=== PATIENT | male | born 1935 | race Caucasian/White ===

== ENCOUNTER 2017-12-17 18:26 | Emergency (ER) | payer MEDICARE, BC ==
[~2017-12-17] VITALS: Ht 182.9 cm; Wt 86.2 kg
[~2017-12-17 18:26] MED LIST: ASCO-22 PO; ATOR10TA70 PO; CHOL2000 PO; INSU100V9 SQ; LACTC PO; LEVO500C3 PO; LOSA25TA96 PO; MAGN400C PO; OMEG10006 PO; RIBO1POW3 PO; S-AD200T5 PO; ST.300CA PO; THIO300C PO; UBID100C16 PO
[2017-12-17 19:25] LABS: BASOPHILS % (AUTO) 0.4 % (0-1); EOSINOPHILS # (AUTO) 0.2 X10'3 (0-0.9); EOSINOPHILS % (AUTO) 3.5 % (0-6); HEMATOCRIT 32.5 % (42.0-52.0); HEMOGLOBIN 11.1 g/dl (14.0-17.9); LYMPHOCYTES # (AUTO) 1.2 X10'3 (1.1-4.8); LYMPHOCYTES % (AUTO) 21.6 % (21-51); MEAN CORPUSCULAR HEMOGLOBIN 29.8 PG (27.0-31.0); MEAN CORPUSCULAR VOLUME 87.5 FL (78-98); MEAN PLATELET VOLUME 7.5 FL (7.4-10.4); MONOCYTES # (AUTO) 0.7 X10'3 (0-0.9); MONOCYTES % (AUTO) 12.6 % (2-12); NEUTROPHILS # (AUTO) 3.3 X10'3 (1.8-7.7); NEUTROPHILS % (AUTO) 61.9 % (42-75); PLATELET COUNT 182 X10'3 (140-440); RED BLOOD COUNT 3.71 X10'6 (4.70-6.10); RED CELL DISTRIBUTION WIDTH 13.2 % (11.5-14.5); WHITE BLOOD COUNT 5.4 X10'3 (4.5-11.0)
[2017-12-17 19:38] LABS: PARTIAL THROMBOPLASTIN TIME 26 SECONDS (22-32); PROTHROMBIN TIME 10.7 SECONDS (9.0-12.0)
[2017-12-17 19:44] LABS: ALANINE AMINOTRANSFERASE 24 U/L (12-78); ALBUMIN 3.3 G/DL (3.4-5.0); ALBUMIN/GLOBULIN RATIO 0.9 (1.1-1.5); ALKALINE PHOSPHATASE 68 IU/L (46-116); ANION GAP 7 (8-16); ASPARTATE AMINO TRANSFERASE 13 U/L (10-37); BILIRUBIN,TOTAL 0.2 MG/DL (0.1-1.0); BLOOD UREA NITROGEN 47 MG/DL (7-18); BUN/CREATININE RATIO 20.4 (5.4-32.0); CALCIUM 9.4 MG/DL (8.5-10.1); CHLORIDE 110 MMOL/L (99-107); CREATINE KINASE 123 U/L (39-308); GLUCOSE 184 MG/DL (70-104); POTASSIUM 4.6 MMOL/L (3.5-5.1); SODIUM 141 MMOL/L (135-145); TOTAL PROTEIN 6.8 G/DL (6.4-8.2); TROPONIN I < 0.04 NG/ML (0.0-0.05); eGFR 27 ML/MIN
[2017-12-17] MEDS ORDERED: HYDROcodone/acetaminophen 5mg/325mg tablet PO ONE (22:30)
[2017-12-17] MEDS ORDERED: HYDR-569 PO (23:27)
[2017-12-17] MEDS ORDERED: TRAM50TA2 PO (23:27)
[2017-12-17 23:48] VITALS: BP 149/89
[2017-12-18] MEDS ORDERED: BACK1EAC10 (01:00)
== END 2017-12-18 01:07 | disposition home or self-care (01) ==
LOC: ER 18:27
DX: S22.058A Other fracture of T5-T6 vertebra, initial encounter for closed fracture (principal); S22.068A Other fracture of T7-T8 thoracic vertebra, initial encounter for closed fracture; R07.89 Other chest pain; I10 Essential (primary) hypertension; I25.10 Atherosclerotic heart disease of native coronary artery without angina pectoris; J44.9 Chronic obstructive pulmonary disease, unspecified; E11.9 Type 2 diabetes mellitus without complications; Z86.73 Personal history of transient ischemic attack (TIA), and cerebral infarction without residual deficits; Z98.890 Other specified postprocedural states; Z79.4 Long term (current) use of insulin; Z79.899 Other long term (current) drug therapy; Z88.2 Allergy status to sulfonamides; Z88.5 Allergy status to narcotic agent; Z88.8 Allergy status to other drugs, medicaments and biological substances; W18.39XA Other fall on same level, initial encounter; Y93.89 Activity, other specified; Y92.89 Other specified places as the place of occurrence of the external cause; Y99.8 Other external cause status
CPT/HCPCS: 36415; 71045; 72128; 80053; 82550; 84484; 85025; 85610; 85730; 93005; 99285

== ENCOUNTER 2018-10-13 10:55 | Emergency (ER) | payer MEDICARE, BC ==
[~2018-10-13] VITALS: Ht 180.3 cm; Wt 200.0 kg
[~2018-10-13 10:55] MED LIST changes: +BACK1EAC10; +HYDR-4383 PO
[2018-10-13] MEDS ORDERED: normal saline 1000ML IV soln IVB ONE (11:35)
[2018-10-13 11:39] LABS: BASOPHILS % (AUTO) 0.8 % (0-1); EOSINOPHILS # (AUTO) 0.2 X10'3 (0-0.9); EOSINOPHILS % (AUTO) 2.8 % (0-6); HEMATOCRIT 36.7 % (42.0-52.0); HEMOGLOBIN 12.1 g/dl (14.0-17.9); LYMPHOCYTES # (AUTO) 1.4 X10'3 (1.1-4.8); LYMPHOCYTES % (AUTO) 22.4 % (21-51); MEAN CORPUSCULAR VOLUME 87.9 FL (78-98); MEAN PLATELET VOLUME 8.1 FL (7.4-10.4); MONOCYTES # (AUTO) 0.5 X10'3 (0-0.9); MONOCYTES % (AUTO) 8.3 % (2-12); NEUTROPHILS % (AUTO) 65.7 % (42-75); PLATELET COUNT 211 X10'3 (140-440); RED BLOOD COUNT 4.18 X10'6 (4.70-6.10); RED CELL DISTRIBUTION WIDTH 14.2 % (11.5-14.5); WHITE BLOOD COUNT 6.1 X10'3 (4.5-11.0)
[2018-10-13 11:52] LABS: INR 1.1 INR; PARTIAL THROMBOPLASTIN TIME 27 SECONDS (22-32)
[2018-10-13 11:54] LABS: ALANINE AMINOTRANSFERASE 19 U/L (12-78); ALBUMIN 3.6 G/DL (3.4-5.0); ALKALINE PHOSPHATASE 82 IU/L (46-116); ANION GAP 11 (8-16); ASPARTATE AMINO TRANSFERASE 15 U/L (10-37); BILIRUBIN,TOTAL 0.3 MG/DL (0.1-1.0); BLOOD UREA NITROGEN 33 MG/DL (7-18); BUN/CREATININE RATIO 12.7 (5.4-32.0); CALCIUM 9.5 MG/DL (8.5-10.1); CHLORIDE 106 MMOL/L (99-107); CREATININE 2.59 MG/DL (0.60-1.10); GLUCOSE 151 MG/DL (70-104); POTASSIUM 3.8 MMOL/L (3.5-5.1); SODIUM 141 MMOL/L (135-145); TOTAL CARBON DIOXIDE 23.8 MMOL/L (24-32); TOTAL PROTEIN 7.3 G/DL (6.4-8.2); eGFR 24 ML/MIN
[2018-10-13 12:43] VITALS: BP 132/92
== END 2018-10-13 12:44 | disposition home or self-care (01) ==
LOC: ER 10:55
DX: R55 Syncope and collapse (principal); N18.9 Chronic kidney disease, unspecified; E11.42 Type 2 diabetes mellitus with diabetic polyneuropathy; E11.22 Type 2 diabetes mellitus with diabetic chronic kidney disease; I25.10 Atherosclerotic heart disease of native coronary artery without angina pectoris; I10 Essential (primary) hypertension; J44.9 Chronic obstructive pulmonary disease, unspecified; Z86.14 Personal history of Methicillin resistant Staphylococcus aureus infection; Z86.73 Personal history of transient ischemic attack (TIA), and cerebral infarction without residual deficits; Z98.61 Coronary angioplasty status; Z98.890 Other specified postprocedural states; Z88.2 Allergy status to sulfonamides; Z88.5 Allergy status to narcotic agent; Z88.8 Allergy status to other drugs, medicaments and biological substances; Z79.4 Long term (current) use of insulin; Z79.899 Other long term (current) drug therapy
CPT/HCPCS: 36415; 71045; 80053; 82948; 84484; 85025; 85610; 85730; 93005; 96360; 99284; J7030

== ENCOUNTER 2019-01-30 18:10 | Inpatient (IN) | payer MEDICARE, BC | END 2019-02-10 13:28 | disposition home or self-care (01) | LOC: ORTHO 4S 02-07 10:15 → ER 18:10 → ED HOLD 01-31 02:17 → ORTHO 4S 01-31 07:14 | DX: I12.9 Hypertensive chronic kidney disease with stage 1 through stage 4 chronic kidney disease, or unspecified chronic kidney disease (principal); G93.41 Metabolic encephalopathy; J18.8 Other pneumonia, unspecified organism; N17.9 Acute kidney failure, unspecified; N18.3 Chronic kidney disease, stage 3 (moderate) ==

== ENCOUNTER 2019-04-03 11:33 | Outpatient (CLI) | payer MEDICARE, BC ==
[~2019-04-03 11:33] MED LIST changes: +CLOP75TA35 PO; -LOSA25TA96 PO; -MAGN400C PO; +METO25TA6 PO
== END 2019-04-03 23:59 | disposition home or self-care (01) ==
LOC: RAD 11:33
DX: R05 Cough (principal)
CPT/HCPCS: 71046

== ENCOUNTER 2019-11-05 07:18 | Inpatient (IN) | payer MEDICARE, BC ==
[~2019-11-05] VITALS: Ht 182.9 cm; Wt 93.6 kg
[2019-11-05] MEDS ORDERED: normal saline 1000ml 1,000 ML IV ONE (08:00)
[2019-11-05 08:03] LABS: BASOPHILS % (AUTO) 0.1 % (0-1); EOSINOPHILS % (AUTO) 0.4 % (0-6); HEMATOCRIT 36.9 % (42.0-52.0); HEMOGLOBIN 12.3 g/dl (14.0-17.9); LYMPHOCYTES # (AUTO) 0.7 X10'3 (1.1-4.8); LYMPHOCYTES % (AUTO) 8.9 % (21-51); MEAN CORPUSCULAR HEMOGLOBIN 29.5 PG (27.0-31.0); MEAN CORPUSCULAR HGB CONC 33.5 g/dL (33.0-36.5); MEAN PLATELET VOLUME 8.6 FL (7.4-10.4); MONOCYTES # (AUTO) 0.6 X10'3 (0-0.9); MONOCYTES % (AUTO) 7.3 % (2-12); NEUTROPHILS # (AUTO) 6.8 X10'3 (1.8-7.7); NEUTROPHILS % (AUTO) 83.3 % (42-75); PLATELET COUNT 191 X10'3 (140-440); RED BLOOD COUNT 4.19 X10'6 (4.70-6.10); RED CELL DISTRIBUTION WIDTH 13.6 % (11.5-14.5); WHITE BLOOD COUNT 8.2 X10'3 (4.5-11.0)
[2019-11-05] MEDS ORDERED: LOSA50TA64 PO (08:07)
[2019-11-05] MEDS ORDERED: MULT-1141 PO (08:09)
[2019-11-05 08:18] LABS: ALANINE AMINOTRANSFERASE 24 U/L (12-78); ALBUMIN 3.5 G/DL (3.4-5.0); ALBUMIN/GLOBULIN RATIO 0.9 (1.1-1.5); ALKALINE PHOSPHATASE 107 IU/L (46-116); ANION GAP 8 (8-16); ASPARTATE AMINO TRANSFERASE 17 U/L (10-37); BILIRUBIN,TOTAL 0.3 MG/DL (0.1-1.0); BLOOD UREA NITROGEN 36 MG/DL (7-18); BUN/CREATININE RATIO 12.2 (5.4-32.0); CALCIUM 9.5 MG/DL (8.5-10.1); CHLORIDE 103 MMOL/L (99-107); CREATININE 2.95 MG/DL (0.60-1.10); GLUCOSE 433 MG/DL (70-104); POTASSIUM 3.9 MMOL/L (3.5-5.1); SODIUM 138 MMOL/L (135-145); TOTAL CARBON DIOXIDE 27.1 MMOL/L (24-32); TOTAL PROTEIN 7.3 G/DL (6.4-8.2); eGFR 20 ML/MIN
[2019-11-05 08:55] LABS: CLARITY,URINE SLIGHTLY CLOUDY (Clear); COLOR,URINE STRAW (Yellow); GLUCOSE, URINE >=1000 mg/dl (Neg); KETONES,URINE NEGATIVE (Neg); LEUKOCYTE ESTERASE ,URINE NEGATIVE (Neg); NITRITES, URINE NEGATIVE (Neg); OCCULT BLOOD,URINE SMALL (Neg); PROTEIN,URINE 30 mg/dl (Neg); UROBILINOGEN,URINE 0.2 E.U/dL (0.2-1.0)
[2019-11-05 08:56] LABS: UA COLLECTION TYPE STRAIGHT CATH
[2019-11-05 09:06] LABS: FINE GRANULAR CAST 0-3 /LPF (NEGATIVE); HYALINE CASTS 0-3 /LPF (NEGATIVE); SQUAMOUS EPITHELIAL CELL,UR FEW /LPF (FEW)
[2019-11-05 09:07] LABS: BACTERIA,URINE 1+ /HPF (Neg); RBC,URINE 0-2 /HPF (0-2)
[2019-11-05 09:08] LABS: AMORPHOUS URATES 2+; WBC,URINE 0-4 /HPF (0-4)
[2019-11-05] MEDS ORDERED: insulin regular, human 10 units/0.1 ml syringe IV ONE (09:10)
[2019-11-05] MEDS ORDERED: dextrose ORAL solution 15 GM/59 ML bottle PO PRN ×2 (09:45)
[2019-11-05] MEDS ORDERED: mag hydrox/Alum hydrox/simeth 30ml oral suspension PO PRN (09:45)
[2019-11-05] MEDS ORDERED: magnesium 2GM in 50ml NS 50 ML IV PRN (09:45)
[2019-11-05] MEDS ORDERED: dextrose 50%-water 50ml dispensing syringe IV PRN ×2 (09:45)
[2019-11-05] MEDS ORDERED: acetaminophen 325mg tablet PO PRN ×2 (09:45)
[2019-11-05] MEDS ORDERED: MESSAGE TO PHARMACY PO ONE (09:45)
[2019-11-05] MEDS ORDERED: glucagon, human recombinant 1mg kit SUBCUT PRN (09:45)
[2019-11-05] MEDS ORDERED: acetaminophen 650mg rectal suppository RC PRN (09:45)
[2019-11-05] MEDS ORDERED: magnesium Cl slow-release 64mg tablet PO PRN (09:45)
[2019-11-05] MEDS ORDERED: potassium CL 10mEq/100ml bag 100 ML IV PRN ×2 (09:45)
[2019-11-05] MEDS ORDERED: bisacodyl 10mg suppository rectal RC PRN (09:45)
[2019-11-05] MEDS ORDERED: magnesium 4gm in 100ml NS 100 ML IV PRN (09:45)
[2019-11-05] MEDS ORDERED: diphenhydrAMINE 25mg capsule PO PRN (09:45)
[2019-11-05] MEDS ORDERED: ondansetron/PF 4mg/2ml inj IV PRN (09:45)
[2019-11-05] MEDS ORDERED: magnesium hydroxide 30ml (MOM) UD suspension PO PRN (09:45)
[2019-11-05] MEDS ORDERED: potassium Cl 20 mEq SR tablet PO PRN ×2 (09:45)
[2019-11-05 10:21] LABS: HEMOGLOBIN A1C 11.2 % (4.5-6.2)
[2019-11-05] MEDS: normal saline 1000ml 1,000 ML IV SCH ×2 (10:22→21:14)
[2019-11-05 10:28] LABS: CHOL/HDL RATIO 3.2 (0.00-4.99); CHOLESTEROL 187 MG/DL (0-200); HDL CHOLESTEROL 59 MG/DL (35-60); LDL CHOLESTEROL 114 MG/DL (50-100); TRIGLYCERIDES 90 MG/DL (20-135)
--- NOTE | 2019-11-05 11:55 | NUR ---
PT. OFF TO MRI WITH TEST ENGINE EVALUATOR VIA W/C.
--- NOTE | 2019-11-05 12:58 | NUR ---
Patient in room ED 7. I have received report from Tiffanie,stained glass glazier helper and had the opportunity to ask questions and assume patient care.
[2019-11-05 14:30] VITALS: BP 167/93
[2019-11-05 15:22] VITALS: BP 115/65
[2019-11-05] MEDS: insulin Lispro (HumaLOG) vial - multi-dose SQ SCH ×2 (15:29→19:44)
[2019-11-05] MEDS: losartan 50mg tablet PO SCH (15:32)
[2019-11-05] MEDS: clopidogrel 75mg tablet PO SCH (15:32)
[2019-11-05 18:00] VITALS: BP 136/72
--- NOTE | 2019-11-05 18:28 | NUR ---
Problems reprioritized. Patient report given, questions answered & plan of care reviewed with NASIM Moreira.
[2019-11-05] MEDS: K and/or MAG REPLACEMENT MC SCH (20:00)
[2019-11-05] MEDS ORDERED: insulin glargine (Lantus) pen - multi-dose SQ SCH (21:00)
[2019-11-05] MEDS ORDERED: UBIDECARENONE PO SCH (21:00)
[2019-11-05] MEDS ORDERED: atorvastatin 10mg tablet PO SCH (21:00)
[2019-11-05] MEDS: heparin, porcine 5000 units/ml vial SQ SCH (21:09)
[2019-11-05 22:00] VITALS: BP 134/73
[2019-11-06] MEDS: CefTRIAXone/D5W-Rocephin 1gm 50 ML IV SCH ×2 (00:10→08:15)
[2019-11-06 02:00] VITALS: BP 132/74
[2019-11-06 06:00] VITALS: BP 136/80
--- NOTE | 2019-11-06 06:52 | NUR ---
Patient in room ORTHO 4008. I have received report from Lillie RN and had the opportunity to ask questions and assume patient care.
[2019-11-06 07:29] LABS: BASOPHILS % (AUTO) 0.7 % (0-1); EOSINOPHILS # (AUTO) 0.1 X10'3 (0-0.9); EOSINOPHILS % (AUTO) 2.1 % (0-6); HEMATOCRIT 31.5 % (42.0-52.0); HEMOGLOBIN 10.8 g/dl (14.0-17.9); LYMPHOCYTES # (AUTO) 1.6 X10'3 (1.1-4.8); LYMPHOCYTES % (AUTO) 29.9 % (21-51); MEAN CORPUSCULAR HEMOGLOBIN 29.8 PG (27.0-31.0); MEAN CORPUSCULAR HGB CONC 34.3 g/dL (33.0-36.5); MEAN CORPUSCULAR VOLUME 87.1 FL (78-98); MEAN PLATELET VOLUME 8.4 FL (7.4-10.4); MONOCYTES # (AUTO) 0.5 X10'3 (0-0.9); MONOCYTES % (AUTO) 8.9 % (2-12); NEUTROPHILS # (AUTO) 3.2 X10'3 (1.8-7.7); NEUTROPHILS % (AUTO) 58.4 % (42-75); PLATELET COUNT 177 X10'3 (140-440); RED BLOOD COUNT 3.62 X10'6 (4.70-6.10); RED CELL DISTRIBUTION WIDTH 13.9 % (11.5-14.5); WHITE BLOOD COUNT 5.5 X10'3 (4.5-11.0)
[2019-11-06 07:49] LABS: ALANINE AMINOTRANSFERASE 20 U/L (12-78); ALBUMIN 2.8 G/DL (3.4-5.0); ALBUMIN/GLOBULIN RATIO 0.9 (1.1-1.5); ALKALINE PHOSPHATASE 80 IU/L (46-116); ANION GAP 8 (8-16); ASPARTATE AMINO TRANSFERASE 15 U/L (10-37); BILIRUBIN,TOTAL 0.3 MG/DL (0.1-1.0); BLOOD UREA NITROGEN 32 MG/DL (7-18); BUN/CREATININE RATIO 11.9 (5.4-32.0); CALCIUM 8.5 MG/DL (8.5-10.1); CHLORIDE 110 MMOL/L (99-107); CHOL/HDL RATIO 3.3 (0.00-4.99); CHOLESTEROL 157 MG/DL (0-200); GLUCOSE 159 MG/DL (70-104); HDL CHOLESTEROL 47 MG/DL (35-60); LDL CHOLESTEROL 96 MG/DL (50-100); PHOSPHORUS 3.4 MG/DL (2.3-4.5); POTASSIUM 3.5 MMOL/L (3.5-5.1); SODIUM 143 MMOL/L (135-145); TOTAL CARBON DIOXIDE 25.5 MMOL/L (24-32); TRIGLYCERIDES 102 MG/DL (20-135); eGFR 23 ML/MIN
[2019-11-06] MEDS: K and/or MAG REPLACEMENT MC SCH (08:07)
[2019-11-06] MEDS: losartan 50mg tablet PO SCH (08:15)
[2019-11-06] MEDS: clopidogrel 75mg tablet PO SCH (08:15)
[2019-11-06] MEDS: heparin, porcine 5000 units/ml vial SQ SCH (08:16)
[2019-11-06] MEDS: normal saline 1000ml 1,000 ML IV SCH (08:25)
[2019-11-06] MEDS: insulin Lispro (HumaLOG) vial - multi-dose SQ SCH (08:44)
[2019-11-06 10:00] VITALS: BP 143/75
[2019-11-06 10:10] VITALS: BP_SYST 123; BP_SYST 130; BP_SYST 143; BP_DIAS 57; BP_DIAS 74; BP_DIAS 75
[2019-11-06] MEDS ORDERED: CEFD300C3 PO (10:27)
[2019-11-06] MEDS ORDERED: GLIM1TAB3 PO (10:28)
[2019-11-06] MEDS ORDERED: SITA100T11 PO (10:28)
--- NOTE | 2019-11-06 11:55 | NUR ---
Safe discharge with family. In personal vehicle. All personal items with patient.
== END 2019-11-06 11:55 | disposition home health service (06) | DRG 306 ==
LOC: ER 07:18 → ED HOLD 09:41 → ORTHO 4S 13:10
PROVIDERS: ADMIT Family Medicine; ATTEND Family Medicine
DX: I35.0 Nonrheumatic aortic (valve) stenosis (principal); I50.33 Acute on chronic diastolic (congestive) heart failure; N39.0 Urinary tract infection, site not specified; I13.0 Hypertensive heart and chronic kidney disease with heart failure and stage 1 through stage 4 chronic kidney disease, or unspecified chronic kidney disease; N18.4 Chronic kidney disease, stage 4 (severe); R55 Syncope and collapse; E11.22 Type 2 diabetes mellitus with diabetic chronic kidney disease; E11.42 Type 2 diabetes mellitus with diabetic polyneuropathy; E11.65 Type 2 diabetes mellitus with hyperglycemia; E78.5 Hyperlipidemia, unspecified; F03.90 Unspecified dementia, unspecified severity, without behavioral disturbance, psychotic disturbance, mood disturbance, and anxiety; I25.10 Atherosclerotic heart disease of native coronary artery without angina pectoris; J44.9 Chronic obstructive pulmonary disease, unspecified; E11.21 Type 2 diabetes mellitus with diabetic nephropathy; Z82.3 Family history of stroke; Z82.49 Family history of ischemic heart disease and other diseases of the circulatory system; Z83.3 Family history of diabetes mellitus; Z85.46 Personal history of malignant neoplasm of prostate; Z86.73 Personal history of transient ischemic attack (TIA), and cerebral infarction without residual deficits; Z90.79 Acquired absence of other genital organ(s)
CPT/HCPCS: 36415; 70450; 70544; 70551; 71045; 80053; 80061; 81001; 82607; 82948; 83036; 83735; 83880; 84100; 84443; 84484; 85025; 87081; 87088; 93005; 93306; 93880; 96361; 96374; 99285; G0378; J0696; J1644; J1815; J7030

== ENCOUNTER 2020-03-01 10:27 | Emergency (ER) | payer MEDICARE, BC ==
[~2020-03-01] VITALS: Ht 182.9 cm; Wt 75.0 kg
[~2020-03-01 10:27] MED LIST changes: -ASCO-22 PO; -ATOR10TA70 PO; +ATOR20TA PO; -BACK1EAC10; -CHOL2000 PO; +CIPR250T4 PO; +CLOP75TA15 PO; -CLOP75TA35 PO; -HYDR-4383 PO; -LACTC PO; -LEVO500C3 PO; +LOSA50TA64 PO; -METO25TA6 PO; +MULT-1141 PO; -OMEG10006 PO; +PSYL1PAC10 PO; -RIBO1POW3 PO; -S-AD200T5 PO; -ST.300CA PO; -THIO300C PO
[2020-03-01 11:54] LABS: CLARITY,URINE SLIGHTLY CLOUDY (Clear); COLOR,URINE YELLOW (Yellow); GLUCOSE, URINE NEGATIVE (Neg); KETONES,URINE NEGATIVE (Neg); LEUKOCYTE ESTERASE ,URINE LARGE (Neg); NITRITES, URINE NEGATIVE (Neg); OCCULT BLOOD,URINE MODERATE (Neg); PROTEIN,URINE TRACE mg/dl (Neg); UROBILINOGEN,URINE 0.2 E.U/dL (0.2-1.0)
[2020-03-01 11:59] LABS: UA COLLECTION TYPE FOLEY CATH
[2020-03-01 12:00] LABS: BASOPHILS % (AUTO) 0.5 % (0-1); EOSINOPHILS # (AUTO) 0.1 X10'3 (0-0.9); EOSINOPHILS % (AUTO) 1.4 % (0-6); HEMATOCRIT 29.9 % (42.0-52.0); HEMOGLOBIN 9.8 g/dl (14.0-17.9); LYMPHOCYTES # (AUTO) 0.9 X10'3 (1.1-4.8); MEAN CORPUSCULAR HEMOGLOBIN 29.5 PG (27.0-31.0); MEAN CORPUSCULAR HGB CONC 32.7 g/dL (33.0-36.5); MEAN CORPUSCULAR VOLUME 90.3 FL (78-98); MONOCYTES # (AUTO) 0.6 X10'3 (0-0.9); MONOCYTES % (AUTO) 9.2 % (2-12); NEUTROPHILS # (AUTO) 4.8 X10'3 (1.8-7.7); NEUTROPHILS % (AUTO) 74.9 % (42-75); PLATELET COUNT 120 X10'3 (140-440); RED BLOOD COUNT 3.31 X10'6 (4.70-6.10); RED CELL DISTRIBUTION WIDTH 15.8 % (11.5-14.5); WHITE BLOOD COUNT 6.5 X10'3 (4.5-11.0)
[2020-03-01 12:07] LABS: PARTIAL THROMBOPLASTIN TIME 34 SECONDS (22-32)
[2020-03-01 12:09] LABS: SQUAMOUS EPITHELIAL CELL,UR NONE SEEN /LPF (FEW)
[2020-03-01 12:09] LABS: ALANINE AMINOTRANSFERASE 21 U/L (12-78); ALBUMIN 3.3 G/DL (3.4-5.0); ALBUMIN/GLOBULIN RATIO 0.9 (1.1-1.5); ALKALINE PHOSPHATASE 111 IU/L (46-116); ANION GAP 9 (8-16); ASPARTATE AMINO TRANSFERASE 24 U/L (10-37); BILIRUBIN,TOTAL 0.5 MG/DL (0.1-1.0); BLOOD UREA NITROGEN 37 MG/DL (7-18); BUN/CREATININE RATIO 14.1 (5.4-32.0); CALCIUM 9.4 MG/DL (8.5-10.1); CHLORIDE 111 MMOL/L (99-107); CREATININE 2.63 MG/DL (0.60-1.10); GLUCOSE 109 MG/DL (70-104); POTASSIUM 3.9 MMOL/L (3.5-5.1); SODIUM 144 MMOL/L (135-145); TOTAL CARBON DIOXIDE 23.6 MMOL/L (24-32); TOTAL PROTEIN 6.8 G/DL (6.4-8.2); eGFR 23 ML/MIN
[2020-03-01 12:10] LABS: WBC,URINE TNTC /HPF (0-4)
[2020-03-01 12:12] LABS: BACTERIA,URINE 2+ /HPF (Neg); YEAST MANY /HPF (NEGATIVE)
[2020-03-01 12:14] LABS: WBC CLUMPS,URINE FEW /HPF (NEGATIVE)
[2020-03-01] MEDS ORDERED: CEPH250T PO (12:27)
--- NOTE | 2020-03-01 12:36 | NUR ---
Call to daughter Bev at this time, on her way to fruit picker patient.
[2020-03-01 12:38] VITALS: BP 160/96
== END 2020-03-01 13:12 | disposition home or self-care (01) ==
LOC: ER 10:28
DX: S00.83XA Contusion of other part of head, initial encounter (principal); M25.551 Pain in right hip; N39.0 Urinary tract infection, site not specified; N28.9 Disorder of kidney and ureter, unspecified; E11.42 Type 2 diabetes mellitus with diabetic polyneuropathy; I25.10 Atherosclerotic heart disease of native coronary artery without angina pectoris; I10 Essential (primary) hypertension; J44.9 Chronic obstructive pulmonary disease, unspecified; G47.30 Sleep apnea, unspecified; Z79.4 Long term (current) use of insulin; Z86.73 Personal history of transient ischemic attack (TIA), and cerebral infarction without residual deficits; Z98.61 Coronary angioplasty status; Z98.890 Other specified postprocedural states; Z88.2 Allergy status to sulfonamides; Z88.5 Allergy status to narcotic agent; Z79.2 Long term (current) use of antibiotics; Z79.899 Other long term (current) drug therapy
CPT/HCPCS: 36415; 70450; 72125; 72170; 80053; 81001; 82948; 85025; 85610; 85730; 87077; 87088; 87186; 99285

== ENCOUNTER 2020-05-07 21:12 | Emergency (ER) | payer MEDICARE, BC ==
[~2020-05-07] VITALS: Ht 188 cm; Wt 93.6 kg
[~2020-05-07 21:12] MED LIST changes: +PSYL1PAC PO; -PSYL1PAC10 PO
[2020-05-07] MEDS ORDERED: acetaminophen 325mg tablet PO ONE (21:30)
[2020-05-07 21:42] LABS: CLARITY,URINE CLOUDY (Clear); COLOR,URINE YELLOW (Yellow); GLUCOSE, URINE 100 mg/dl (Neg); KETONES,URINE NEGATIVE (Neg); LEUKOCYTE ESTERASE ,URINE LARGE (Neg); NITRITES, URINE POSITIVE (Neg); OCCULT BLOOD,URINE LARGE (Neg); PH,URINE 6.5 (4.8-8.0); PROTEIN,URINE 100 mg/dl (Neg); UA COLLECTION TYPE FOLEY CATH; UROBILINOGEN,URINE 0.2 E.U/dL (0.2-1.0)
[2020-05-07 21:46] LABS: EOSINOPHILS % (AUTO) 0.1 % (0-6); HEMOGLOBIN 11.1 g/dl (14.0-17.9); LYMPHOCYTES # (AUTO) 1.6 X10'3 (1.1-4.8)
[2020-05-07 21:49] LABS: BACTERIA,URINE 2+ /HPF (Neg); RBC,URINE 0-2 /HPF (0-2); SQUAMOUS EPITHELIAL CELL,UR FEW /LPF (FEW); WBC,URINE 0-4 /HPF (0-4)
[2020-05-07 21:50] LABS: BASOPHILS % (AUTO) 0.3 % (0-1); HEMATOCRIT 33.5 % (42.0-52.0); LYMPHOCYTES % (AUTO) 11.3 % (21-51); MEAN CORPUSCULAR VOLUME 87.9 FL (78-98); MEAN PLATELET VOLUME 8.3 FL (7.4-10.4); MONOCYTES # (AUTO) 1.1 X10'3 (0-0.9); MONOCYTES % (AUTO) 7.4 % (2-12); NEUTROPHILS # (AUTO) 11.7 X10'3 (1.8-7.7); NEUTROPHILS % (AUTO) 80.9 % (42-75); PLATELET COUNT 150 X10'3 (140-440); RED BLOOD COUNT 3.82 X10'6 (4.70-6.10); RED CELL DISTRIBUTION WIDTH 14.2 % (11.5-14.5); WHITE BLOOD COUNT 14.4 X10'3 (4.5-11.0)
[2020-05-07 21:57] LABS: ALANINE AMINOTRANSFERASE 19 U/L (12-78); ALBUMIN 3.7 G/DL (3.4-5.0); ALKALINE PHOSPHATASE 109 IU/L (46-116); ANION GAP 11 (8-16); ASPARTATE AMINO TRANSFERASE 18 U/L (10-37); BILIRUBIN,TOTAL 0.4 MG/DL (0.1-1.0); BLOOD UREA NITROGEN 32 MG/DL (7-18); BUN/CREATININE RATIO 11.6 (5.4-32.0); CALCIUM 9.2 MG/DL (8.5-10.1); CHLORIDE 106 MMOL/L (99-107); CREATININE 2.76 MG/DL (0.60-1.10); GLUCOSE 234 MG/DL (70-104); LIPASE 687 U/L (73-393); POTASSIUM 3.9 MMOL/L (3.5-5.1); SODIUM 140 MMOL/L (135-145); TOTAL CARBON DIOXIDE 23.1 MMOL/L (24-32); TOTAL PROTEIN 7.3 G/DL (6.4-8.2); eGFR 22 ML/MIN
[2020-05-07] MEDS ORDERED: CefTRIAXone 2gm/D5W 50ml 50 ML IV ONE (23:00)
[2020-05-07] MEDS ORDERED: normal saline 1000ML IV soln IV ONE (23:00)
[2020-05-07] MEDS ORDERED: CEPH500C5 PO (23:29)
[2020-05-08 00:45] VITALS: BP 153/86
--- NOTE | 2020-05-11 16:30 | NUR ---
CALLED IN CIPRO 500MG PO BID X 10 DAYS #20
== END 2020-05-08 00:47 | disposition home or self-care (01) ==
LOC: ER 21:12
DX: N39.0 Urinary tract infection, site not specified (principal); R10.9 Unspecified abdominal pain; R31.9 Hematuria, unspecified; R50.9 Fever, unspecified; R11.10 Vomiting, unspecified; E11.42 Type 2 diabetes mellitus with diabetic polyneuropathy; I25.10 Atherosclerotic heart disease of native coronary artery without angina pectoris; I10 Essential (primary) hypertension; J45.909 Unspecified asthma, uncomplicated; J44.9 Chronic obstructive pulmonary disease, unspecified; Z86.73 Personal history of transient ischemic attack (TIA), and cerebral infarction without residual deficits; Z86.14 Personal history of Methicillin resistant Staphylococcus aureus infection; Z85.9 Personal history of malignant neoplasm, unspecified; Z98.890 Other specified postprocedural states; Z88.2 Allergy status to sulfonamides; Z88.5 Allergy status to narcotic agent; Z88.8 Allergy status to other drugs, medicaments and biological substances; Z79.2 Long term (current) use of antibiotics; Z79.4 Long term (current) use of insulin; Z79.899 Other long term (current) drug therapy
CPT/HCPCS: 36415; 71045; 80053; 81001; 83690; 85025; 87077; 87088; 87186; 96365; 99284; J0696; J7030

== ENCOUNTER 2021-12-03 15:34 | Emergency (ER) | payer MEDICARE, BC ==
[~2021-12-03] VITALS: Ht 182.9 cm; Wt 89.0 kg
--- NOTE | 2021-12-03 16:50 | NUR ---
no stroke alert called per Akilah CALL.
[2021-12-03 17:45] LABS: BASOPHILS % (AUTO) 0.4 % (0-1); EOSINOPHILS % (AUTO) 0.2 % (0-6); HEMATOCRIT 36.2 % (42.0-52.0); HEMOGLOBIN 12.1 g/dl (14.0-17.9); LYMPHOCYTES # (AUTO) 0.9 X10'3 (1.1-4.8); LYMPHOCYTES % (AUTO) 14.7 % (21-51); MEAN CORPUSCULAR HEMOGLOBIN 29.7 PG (27.0-31.0); MEAN CORPUSCULAR HGB CONC 33.4 g/dL (33.0-36.5); MEAN CORPUSCULAR VOLUME 88.9 FL (78-98); MEAN PLATELET VOLUME 8.1 FL (7.4-10.4); MONOCYTES # (AUTO) 0.8 X10'3 (0-0.9); MONOCYTES % (AUTO) 13.7 % (2-12); NEUTROPHILS # (AUTO) 4.4 X10'3 (1.8-7.7); PLATELET COUNT 152 X10'3 (140-440); RED BLOOD COUNT 4.08 X10'6 (4.70-6.10); RED CELL DISTRIBUTION WIDTH 14.4 % (11.5-14.5); WHITE BLOOD COUNT 6.2 X10'3 (4.5-11.0)
[2021-12-03 17:55] LABS: ALANINE AMINOTRANSFERASE 27 U/L (12-78); ALBUMIN 3.6 G/DL (3.4-5.0); ALKALINE PHOSPHATASE 84 IU/L (46-116); ANION GAP 10 (8-16); ASPARTATE AMINO TRANSFERASE 34 U/L (10-37); BILIRUBIN,TOTAL 0.4 MG/DL (0.1-1.0); BLOOD UREA NITROGEN 34 MG/DL (7-18); BUN/CREATININE RATIO 9.8 (5.4-32.0); CALCIUM 8.8 MG/DL (8.5-10.1); CHLORIDE 108 MMOL/L (99-107); CREATININE 3.48 MG/DL (0.60-1.10); GLUCOSE 117 MG/DL (70-104); POTASSIUM 3.7 MMOL/L (3.5-5.1); SODIUM 142 MMOL/L (135-145); TOTAL CARBON DIOXIDE 24.5 MMOL/L (24-32); TOTAL PROTEIN 7.2 G/DL (6.4-8.2); eGFR 17 ML/MIN
[2021-12-03 18:34] VITALS: BP 148/85
[2021-12-03 18:48] LABS: C-REACTIVE PROTEIN 1.31 MG/DL (0.0-0.5); D-DIMER 1.44 MG/L FEU (0-0.50)
--- NOTE | 2021-12-03 19:09 | NUR ---
PT'S FAMILY MEMBERS SPOKE WITH P.A., STATED THEY WERE GOING TO LEAVE, LEFT WITHOUT SIGNING AMA FORM
== END 2021-12-03 19:12 | disposition left against medical advice (07) ==
LOC: ER 15:35
DX: U07.1 COVID-19 (principal); R50.9 Fever, unspecified; R53.1 Weakness; N17.9 Acute kidney failure, unspecified; R11.10 Vomiting, unspecified; R19.7 Diarrhea, unspecified; E11.42 Type 2 diabetes mellitus with diabetic polyneuropathy; I25.10 Atherosclerotic heart disease of native coronary artery without angina pectoris; N18.9 Chronic kidney disease, unspecified; I10 Essential (primary) hypertension; J44.9 Chronic obstructive pulmonary disease, unspecified; Z86.73 Personal history of transient ischemic attack (TIA), and cerebral infarction without residual deficits; Z86.2 Personal history of diseases of the blood and blood-forming organs and certain disorders involving the immune mechanism; Z86.14 Personal history of Methicillin resistant Staphylococcus aureus infection; Z85.9 Personal history of malignant neoplasm, unspecified; Z98.890 Other specified postprocedural states; Z88.2 Allergy status to sulfonamides; Z88.8 Allergy status to other drugs, medicaments and biological substances; Z88.5 Allergy status to narcotic agent; Z79.2 Long term (current) use of antibiotics; Z79.899 Other long term (current) drug therapy
CPT/HCPCS: 36415; 71045; 80053; 83880; 84145; 84484; 85025; 85379; 86140; 93005; 99285